=== PATIENT | female | born 1965 | race Caucasian/White ===

== ENCOUNTER 2017-01-20 08:39 | Emergency (ER) | payer OTHER ==
[~2017-01-20 08:39] MED LIST: ALBUTEROL MININEB NEB; ALBUTEROL17 GM; ALBUTEROL17 GM INH; ALBUTEROL17 GM PO; BACITRACIN3.5 G1; CETIRIZINE HCL10 MG PO; CLEOCIN PO; DARVOCET-N 1001 TA2 PO; DOLOBID PO; DOXYCYCLINE HY100 M1 PO; FLEXERIL10 MG PO; IBUPROFEN800 MG PO; LISINOPRIL PO; MEDROL4 MG/DOSE- PO; NEURONTIN PO; NEURONTIN300 MG PO; PAXIL PO; PHENERGAN DM PO; PREDNISONE PO; PROPRANOLOL PO; ULTRAM PO; VICODIN 5/1 TAB 5/50 PO; VOLTAREN50 MG PO; VOLTAREN75 MG PO; ZITHROMAX PO
== END 2017-01-20 09:05 | disposition home or self-care (01) ==
LOC: CED 08:39
DX: J02.9 Acute pharyngitis, unspecified (principal); H66.91 Otitis media, unspecified, right ear; L03.116 Cellulitis of left lower limb; I10 Essential (primary) hypertension; J44.9 Chronic obstructive pulmonary disease, unspecified; F32.9 Major depressive disorder, single episode, unspecified; F17.210 Nicotine dependence, cigarettes, uncomplicated; Z88.2 Allergy status to sulfonamides; Z88.5 Allergy status to narcotic agent; Z88.6 Allergy status to analgesic agent; Z79.899 Other long term (current) drug therapy
CPT/HCPCS: 87651; 99282

== ENCOUNTER 2017-06-21 19:10 | Emergency (ER) | payer OTHER ==
[~2017-06-21] VITALS: Ht 160 cm; Wt 95.2 kg
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
[2017-06-21] MEDS ORDERED: POTASSIUM (19:50)
== END 2017-06-21 23:01 | disposition home or self-care (01) ==
LOC: SED 19:10
DX: S33.5XXA Sprain of ligaments of lumbar spine, initial encounter (principal); V49.40XA Driver injured in collision with unspecified motor vehicles in traffic accident, initial encounter
CPT/HCPCS: 72100; 99284